=== PATIENT | female | born 1965 | race Two or more races ===

== ENCOUNTER 2018-01-10 08:18 | Outpatient (CLI) | payer BC | END 2018-01-10 08:43 | disposition home or self-care (01) | LOC: MAMO-SONO 08:18 | DX: N64.4 Mastodynia (principal); Z12.31 Encounter for screening mammogram for malignant neoplasm of breast ==

== ENCOUNTER 2018-02-20 13:27 | Outpatient (CLI) | payer BC | END 2018-02-20 13:38 | disposition home or self-care (01) | LOC: RAD 13:27 → MAMO-SONO 13:45 | DX: M25.511 Pain in right shoulder (principal); M54.2 Cervicalgia ==